=== PATIENT | female | born 1950 | race Caucasian/White ===

== ENCOUNTER 2019-11-29 08:20 | Day surgery (SDC) | payer OTHER ==
[2019-11-23 12:19] VITALS: BMI 27.0
[2019-11-29] MEDS ORDERED: PHENYLEPHRINE 2.5% OPHTH SOLN 15 ML BOTTLE ONE (08:40)
[2019-11-29] MEDS ORDERED: TROPICAMIDE 1% OPHTH SOLN 15 ML BOTTLE ONE (08:40)
[2019-11-29] MEDS ORDERED: CYCLOPENTOLATE HCL 1% OPHTH SOLN 2 ML BOTTLE ONE (08:40)
[2019-11-29] MEDS ORDERED: OFLOXACIN 0.3% OPHTHALMIC SOLUTION 5 ML BOTTLE ONE (08:40)
[2019-11-29] MEDS ORDERED: KETOROLAC TROMETHAMINE 0.5% EYE DROP 1 DROP DROPS ONE (08:40)
[2019-11-29] MEDS: PHENYLEPHRINE 2.5% OPHTH SOLN 15 ML BOTTLE OD SCH ×5 (09:10→09:30)
[2019-11-29] MEDS: OFLOXACIN 0.3% OPHTHALMIC SOLUTION 5 ML BOTTLE OD SCH ×5 (09:10→09:30)
[2019-11-29] MEDS: KETOROLAC TROMETHAMINE 0.5% EYE DROP 1 DROP DROPS OD SCH ×5 (09:10→09:30)
[2019-11-29] MEDS: CYCLOPENTOLATE HCL 1% OPHTH SOLN 2 ML BOTTLE OD SCH ×5 (09:10→09:30)
[2019-11-29] MEDS: TROPICAMIDE 1% OPHTH SOLN 15 ML BOTTLE OD SCH ×5 (09:10→09:30)
[2019-11-29] MEDS ORDERED: BACITRACIN/POLYMYXIN OPH OINT 3.5 GM TUBE ONE (09:57)
[2019-11-29] MEDS ORDERED: TETRACAINE 0.5% OPHTH SOLN 2 ML BOTTLE ONE (09:58)
[2019-11-29] MEDS ORDERED: POVIDONE-IODINE 5% OPHTHALMIC PREP 30 ML SOLUTION ONE (09:58)
[2019-11-29] MEDS ORDERED: EPI-SHUGARCAINE (EPINEPHRINE 0.025% & LIDOCAINE-PF 0.75%) 4ML ONE (09:58)
[2019-11-29] MEDS ORDERED: BETAXOLOL HCL 0.25% OPHTHALMIC 10 ML DROPSBTL ONE (09:58)
[2019-11-29] MEDS ORDERED: NEO/POLYMYX B SULF/DEXAMETH OPHTHALMIC 5ML BOTTLE ONE (09:58)
[2019-11-29] MEDS ORDERED: MIDAZOLAM HCL 2 MG/2 ML SINGLE DOSE VIAL ONE ×2 (10:08→10:52)
[2019-11-29] MEDS ORDERED: ACETAMINOPHEN 325 MG TABLET (FP) PO PRN (11:05)
[2019-11-29 11:37] VITALS: TEMP 98
[2019-11-29 12:23] VITALS: BP 106/55; PULSE 102
--- NOTE | 2019-11-29 16:17 | OP ---
DATE OF OPERATION: 11/29/2019 PREOPERATIVE DIAGNOSIS: Cataract, right eye. POSTOPERATIVE DIAGNOSIS: Cataract, right eye. SURGEON: Juventino Dixon MD PROCEDURE: Cataract extraction via phacoemulsification with insertion of posterior chamber lens implant, right eye, toric lens. PALLET [employer]ONE POSITIONER: aKyla Arias MD ANESTHESIA: Topical with sedation. ESTIMATED BLOOD LOSS: Less than 1 mL COMPLICATIONS: None. SPECIMENS: None. PROCEDURE: The patient was identified in the holding area. After all risks, benefits and alternatives were explained to the patient, informed consent was obtained. The right eye was marked with a marking pen. The patient then entered the operating room on an eye stretcher. After a formal timeout was performed, topical tetracaine eye drops were instilled onto the right eye. The patient was then instructed to sit up and look straight ahead and the cardinal axis of astigmatism was marked using toric marking pen and a toric marker. The patient was then instructed to lie back down and the right eye was prepped and draped in the usual sterile fashion. An eyelid speculum was placed beneath the eyelids of the right eye. Then the axis of astigmatism was marked on the cornea which was noted to be 170 degrees. That was done with a toric dial and a toric marking pen. Then a superotemporal paracentesis incision was created using a 15-degree blade. Topical preservative-free epinephrine and preservative-free lidocaine were then injected into the anterior chamber. Viscoelastic was then injected into the anterior chamber. A 2.4-mm keratome blade was then used to make an inferotemporal incision. A 360-degree continuous curvilinear capsulorrhexis was then created using bent cystotome and Utrata forceps. Hydrodissection was performed using balanced saline solution on a cannula. Phacoemulsification was introduced. It disassembled and removed the nucleus in its entirety. Irrigation/aspiration was then used to remove any remaining cortical material from the eye. The capsular bag was reformed using viscoelastic. An Alberto model SN6AT3 with a power of 24.5 diopters, serial number [id number] was inspected, found to be defect free and injected in the capsular bag. Irrigation/aspiration was then used to remove any remaining viscoelastic from the eye including posterior to the optic. The intraocular lens was rotated so that the axis of the astigmatism on the optic matched the axis of the astigmatism on the cornea, which was noted to be 170 degrees. All wounds were hydrated with balanced saline solution, noted to be watertight. The anterior chamber was deep. The lens was perfectly centered in the capsular bag with the axis of astigmatism at 170 degrees. There was a red reflex present and the eye had adequate pressure. Topical antibiotic eye drops and ointment were then administered to the right eye. The eyelid speculum was removed from the right eye. The right eye was shielded. Patient tolerated the procedure well, left the operating room in stable condition, to follow up in the eye clinic tomorrow morning at 10 o'clock. JUVENTINO DIXON M.D. [id number]
== END 2019-11-29 12:05 | disposition home or self-care (01) ==
LOC: FASU 08:20
PROVIDERS: ATTEND Ophthalmology
PROC: 08RJ3JZ Replacement of Right Lens with Synthetic Substitute, Percutaneous Approach (ICD-10-PCS; principal; 2019-11-29 10:31)
DX: H26.9 Unspecified cataract (principal)